=== PATIENT | male | born 1955 | race Caucasian/White ===

== ENCOUNTER 2018-01-28 08:00 | Outpatient (CLI) | payer OTHER ==
[~2018-01-28 08:00] MED LIST: ACIDOPHILUS1 EAC1 PO; INTEGRA F CAPS1 EACH PO; JANUMET 50-1,01 EACH PO; JANUMET XR 50-1 EAC1 PO; LOSARTAN-HCTZ1 EAC2 PO; Lantus 1000 U/10 ML SUBCUTANEO; Neurin-Sl Tablet Sl SL; OMEPRAZOLE20 MG PO; PANTOPRAZOLE SO40 MG PO; PERCOCET 5-3251 EACH PO; VYTORIN 10-201 EACH PO
== END 2018-01-28 08:12 | disposition home or self-care (01) ==
LOC: LAB 08:00
DX: C18.2 Malignant neoplasm of ascending colon (principal); Z51.81 Encounter for therapeutic drug level monitoring

== ENCOUNTER 2018-02-03 07:11 | Outpatient (CLI) | payer OTHER | END 2018-02-03 07:23 | disposition home or self-care (01) | LOC: TOM 07:11 | DX: C18.2 Malignant neoplasm of ascending colon (principal); G89.3 Neoplasm related pain (acute) (chronic); K29.70 Gastritis, unspecified, without bleeding ==

== ENCOUNTER 2018-03-30 05:00 | Day surgery (SDC) | payer OTHER | END 2018-03-30 13:10 | disposition home or self-care (01) | LOC: AMB-ENDOS 05:00 | DX: K63.5 Polyp of colon (principal) ==

== ENCOUNTER 2018-07-30 09:39 | Outpatient (CLI) | payer OTHER | END 2018-07-30 09:57 | disposition home or self-care (01) | LOC: TOM 09:39 | DX: C18.2 Malignant neoplasm of ascending colon (principal); D69.3 Immune thrombocytopenic purpura ==

== ENCOUNTER 2019-03-08 06:21 | Day surgery (SDC) | payer OTHER | END 2019-03-08 10:35 | disposition home or self-care (01) | LOC: AMB-ENDOS 06:21 | DX: D12.3 Benign neoplasm of transverse colon (principal) ==

== ENCOUNTER 2019-04-21 14:18 | Outpatient (CLI) | payer OTHER | END 2019-04-21 14:25 | disposition home or self-care (01) | LOC: LAB 14:18 | DX: N20.0 Calculus of kidney (principal) ==

== ENCOUNTER 2019-05-07 06:18 | Outpatient (CLI) | payer OTHER | END 2019-05-07 06:25 | disposition home or self-care (01) | LOC: LAB 06:18 | DX: C18.2 Malignant neoplasm of ascending colon (principal) ==

== ENCOUNTER → 2019-05-07 | Outpatient (CLI) | payer OTHER | END | disposition home or self-care (01) | LOC: TOM 07:28 | DX: C18.2 Malignant neoplasm of ascending colon (principal); D69.3 Immune thrombocytopenic purpura ==

== ENCOUNTER 2019-06-24 07:24 | Outpatient (CLI) | payer OTHER | END 2019-06-24 09:09 | disposition home or self-care (01) | LOC: NUCLEAR 07:24 | DX: C18.2 Malignant neoplasm of ascending colon (principal) | CPT/HCPCS: 78816; A9552 ==

== ENCOUNTER 2019-11-12 05:32 | Day surgery (SDC) | payer OTHER ==
[2019-11-12] MEDS ORDERED: PERCOCET 5-3251 EACH PO (08:37)
== END 2019-11-12 10:25 | disposition home or self-care (01) ==
LOC: CIR.AMB 05:32
PROVIDERS: ATTEND Surgery
DX: C18.2 Malignant neoplasm of ascending colon (principal)

== ENCOUNTER 2020-05-16 07:14 | Outpatient (CLI) | payer OTHER | END 2020-05-16 07:23 | disposition home or self-care (01) | LOC: RAD 07:14 | PROVIDERS: ATTEND Internal Medicine | DX: M12.542 Traumatic arthropathy, left hand (principal) ==

== ENCOUNTER 2020-05-16 08:22 | Outpatient (CLI) | payer OTHER | END 2020-05-16 08:27 | disposition home or self-care (01) | LOC: NUCLEAR 08:22 | PROVIDERS: ATTEND Internal Medicine | DX: I80.8 Phlebitis and thrombophlebitis of other sites (principal) ==

== ENCOUNTER 2020-06-05 08:21 | Outpatient (CLI) | payer OTHER | END 2020-06-05 08:23 | disposition home or self-care (01) | LOC: TOM 08:21 | DX: R59.0 Localized enlarged lymph nodes (principal); Z85.038 Personal history of other malignant neoplasm of large intestine; C18.2 Malignant neoplasm of ascending colon ==

== ENCOUNTER 2020-07-24 07:11 | Outpatient (CLI) | payer OTHER | END 2020-07-24 07:22 | disposition home or self-care (01) | LOC: MRI 07:11 | PROVIDERS: ATTEND Internal Medicine | DX: G56.01 Carpal tunnel syndrome, right upper limb (principal) | CPT/HCPCS: 73221 ==

== ENCOUNTER 2021-01-15 06:32 | Day surgery (SDC) | payer OTHER | END 2021-01-15 13:15 | disposition home or self-care (01) | LOC: AMB-ENDOS 06:32 | PROVIDERS: ATTEND Surgery | DX: D12.4 Benign neoplasm of descending colon (principal); D12.3 Benign neoplasm of transverse colon; Z20.822 Contact with and (suspected) exposure to COVID-19 ==

== ENCOUNTER 2022-09-03 08:23 | Day surgery (SDC) | payer OTHER ==
[~2022-09-03] VITALS: Ht 172.7 cm; Wt 72.6 kg
[~2022-09-03 08:23] MED LIST changes: +COZAAR100 MG PO; +LANTUS; +SIMVAST PO
[2022-09-03] MEDS ORDERED: TRAM1TAB98 PO (10:36)
[2022-09-03] MEDS ORDERED: FENTANYL1 EAC4 TD (14:25)
== END 2022-09-03 14:40 | disposition home or self-care (01) ==
LOC: CIR.AMB 08:23
PROVIDERS: ATTEND Surgery
DX: C02.9 Malignant neoplasm of tongue, unspecified (principal); R59.0 Localized enlarged lymph nodes; I10 Essential (primary) hypertension; Z20.822 Contact with and (suspected) exposure to COVID-19

== ENCOUNTER 2022-09-16 16:39 | Emergency (ER) | payer OTHER ==
[~2022-09-16] VITALS: Ht 170.2 cm; Wt 64.0 kg
[~2022-09-16 16:39] MED LIST changes: +FENTANYL1 EAC4 TD; +TRAM1TAB98 PO
[2022-09-17] MEDS ORDERED: ELIQUIS5 MG PO (13:12)
== END 2022-09-16 17:39 | disposition left against medical advice (07) ==
LOC: ER 16:39
DX: Z53.21 Procedure and treatment not carried out due to patient leaving prior to being seen by health care provider (principal)

== ENCOUNTER 2022-09-17 06:55 | Emergency (ER) | payer OTHER ==
[~2022-09-17] VITALS: Ht 172.7 cm; Wt 68.0 kg
[2022-09-17] MEDS ORDERED: ELIQUIS5 MG PO (13:12)
== END 2022-09-17 13:23 | disposition home or self-care (01) ==
LOC: ER 06:55
DX: R60.0 Localized edema (principal); E11.9 Type 2 diabetes mellitus without complications; Z79.4 Long term (current) use of insulin; I80.8 Phlebitis and thrombophlebitis of other sites

== ENCOUNTER 2022-09-28 16:04 | Inpatient (IN) | payer OTHER ==
[~2022-09-28] VITALS: Ht 170.2 cm; Wt 78.0 kg
[~2022-09-28 16:04] MED LIST changes: +ELIQUIS5 MG PO
--- NOTE | 2022-09-28 16:11 | NUR ---
PATIENT IS RECIEVED IN AMBULANCE UNIT ALERT AND ORIENTED X3. PARAMEDICS SAY HE HAS BEEN BROUGHT TO THE ER FOR HYPERGLYCEMIA AND A FALL THAT OCCURED EARLIER TODAY. PATIENT COMPLAINS OF RIGHT HIP PAIN.
[2022-09-30] MEDS ORDERED: FAMOTIDINE40 MG (15:01)
[2022-09-30] MEDS ORDERED: DOCUSATE CALCI240 MG (15:01)
[2022-09-30] MEDS ORDERED: LOSARTAN-HCTZ1 EAC1 (15:02)
[2022-09-30] MEDS ORDERED: ONDANSETRON HCL4 MG (15:03)
[2022-09-30] MEDS ORDERED: SIMVASTATIN10 MG (15:03)
== END 2022-10-09 10:15 | disposition expired | DRG 640 ==
LOC: ER 16:04 → SURG 23:20 → SURH 10-02 13:30
PROVIDERS: ADMIT Internal Medicine; ATTEND Internal Medicine
PROC: B54PZZZ Ultrasonography of Bilateral Upper Extremity Veins (ICD-10-PCS; 2022-09-28)
PROC: BB24ZZZ Computerized Tomography (CT Scan) of Bilateral Lungs (ICD-10-PCS; 2022-09-28)
PROC: BP2 Imaging, Non-Axial Upper Bones, Computerized Tomography (CT Scan) (ICD-10-PCS; 2022-09-28)
PROC: BP29ZZZ Computerized Tomography (CT Scan) of Left Shoulder (ICD-10-PCS; 2022-09-28)
PROC: 3E0336Z Introduction of Nutritional Substance into Peripheral Vein, Percutaneous Approach (ICD-10-PCS; 2022-09-29)
PROC: 8E0ZXY6 Isolation (ICD-10-PCS; principal; 2022-09-30)
PROC: 02HV33Z Insertion of Infusion Device into Superior Vena Cava, Percutaneous Approach (ICD-10-PCS; 2022-09-30)
PROC: 3E0436Z Introduction of Nutritional Substance into Central Vein, Percutaneous Approach (ICD-10-PCS; 2022-09-30)
PROC: B246ZZZ Ultrasonography of Right and Left Heart (ICD-10-PCS; 2022-10-01)
PROC: 30233N1 Transfusion of Nonautologous Red Blood Cells into Peripheral Vein, Percutaneous Approach (ICD-10-PCS; 2022-10-01)
PROC: 30233R1 Transfusion of Nonautologous Platelets into Peripheral Vein, Percutaneous Approach (ICD-10-PCS; 2022-10-02)
DX: E86.0 Dehydration (principal); A41.52 Sepsis due to Pseudomonas; U07.1 COVID-19; J12.82 Pneumonia due to coronavirus disease 2019; J96.01 Acute respiratory failure with hypoxia; L89.153 Pressure ulcer of sacral region, stage 3; D61.810 Antineoplastic chemotherapy induced pancytopenia; T80.212A Local infection due to central venous catheter, initial encounter; I82.622 Acute embolism and thrombosis of deep veins of left upper extremity; N17.8 Other acute kidney failure; E46 Unspecified protein-calorie malnutrition; D68.8 Other specified coagulation defects; D64.81 Anemia due to antineoplastic chemotherapy; B96.5 Pseudomonas (aeruginosa) (mallei) (pseudomallei) as the cause of diseases classified elsewhere; C02.9 Malignant neoplasm of tongue, unspecified; D69.6 Thrombocytopenia, unspecified; G89.3 Neoplasm related pain (acute) (chronic); L08.89 Other specified local infections of the skin and subcutaneous tissue; I80.8 Phlebitis and thrombophlebitis of other sites; E11.65 Type 2 diabetes mellitus with hyperglycemia; D64.89 Other specified anemias; R13.19 Other dysphagia; Z66 Do not resuscitate; E87.6 Hypokalemia; E88.09 Other disorders of plasma-protein metabolism, not elsewhere classified; B96.7 Clostridium perfringens [C. perfringens] as the cause of diseases classified elsewhere; B96.20 Unspecified Escherichia coli [E. coli] as the cause of diseases classified elsewhere; B96.4 Proteus (mirabilis) (morganii) as the cause of diseases classified elsewhere; B95.7 Other staphylococcus as the cause of diseases classified elsewhere; B96.6 Bacteroides fragilis [B. fragilis] as the cause of diseases classified elsewhere; B96.89 Other specified bacterial agents as the cause of diseases classified elsewhere; Z74.01 Bed confinement status; Z51.11 Encounter for antineoplastic chemotherapy; Z79.84 Long term (current) use of oral hypoglycemic drugs; Z79.4 Long term (current) use of insulin